=== PATIENT | female | born 1985 | race Caucasian/White ===

== ENCOUNTER → 2017-08-14 | Outpatient (CLI) | END | disposition home or self-care (01) ==

== ENCOUNTER 2017-09-02 14:43 | Emergency (ER) | END 2017-09-02 18:16 | disposition home or self-care (01) ==

== ENCOUNTER 2017-12-23 11:00 | Inpatient (IN) | END 2017-12-26 13:40 | disposition home or self-care (01) | DRG 782 ==

== ENCOUNTER 2018-01-23 18:10 | Outpatient (CLI) | END 2018-01-23 22:48 | disposition home or self-care (01) ==

== ENCOUNTER 2018-02-02 19:53 | Outpatient (CLI) | END 2018-02-02 23:50 | disposition home or self-care (01) ==

== ENCOUNTER 2018-03-16 16:33 | Outpatient (CLI) | END 2018-03-16 18:05 | disposition left against medical advice (07) ==